=== PATIENT | female | born 1940 | race Caucasian/White ===

== ENCOUNTER 2016-11-08 22:31 | Inpatient (IN) ==
[2016-11-08] MEDS ORDERED: SODIUM CHLORIDE 0.9% 1,000 ML IV STA (22:51)
[2016-11-08 23:03] LABS: Basophils # 0.1 10*3/uL (0.0-0.2); Basophils % 1.1 % (0.0-0.8); Eosinophils # 0.4 10*3/uL (0.0-0.87); Eosinophils % 3.3 % (0.00-10.9); Hematocrit 34.6 VOL% (35.7-47.0); Hemoglobin 11.5 GM/DL (12.0-16.0); Immature Granulocytes % 0.3 %; Immature Granulocytes Absolute 0.03 #; Lymphocytes # 3.3 10*3/uL (1.4-4.0); Lymphocytes % 29.7 % (21.3-54.2); Mean Corpuscular HGB Conc 33.2 GM/DL (32-36); Mean Corpuscular Hemoglobin 30 PG (27-34); Mean Corpuscular Volume 89.9 FL (87-102); Monocytes # 0.8 10*3/uL (0.11-0.8); Monocytes % 6.7 % (1.7-12.7); Neutrophils # 6.6 10*3/uL (1.4-7.4); Neutrophils % 58.9 % (38.7-73.9); Platelet Count 331 T/CUMM (130-400); Red Blood Count 3.85 MC/CUMM (3.8-5.5); Red Cell Distribution Width 13.4 % (9.3-17.3); White Blood Count 11.1 T/CUMM (4-12)
[2016-11-08] MEDS ORDERED: ONDANSETRON 4 MG/2 ML VIAL IV STA (23:07)
[2016-11-08] MEDS ORDERED: ONDANSETRON 4 MG/2 ML VIAL ONE (23:07)
[2016-11-08 23:17] LABS: Alanine Aminotransferase 15 U/L (13-56); Albumin 3.8 G/DL (3.4-5.0); Alkaline Phosphatase 90 U/L (45-117); Aspartate Amino Transferase 16 U/L (0-37); Bilirubin,Total < 0.39 MG/DL (0.2-1.0); Blood Urea Nitrogen 24 MG/DL (7-18); Calcium 8.8 MG/DL (8.5-10.1); Glucose 131 MG/DL (74-106); Potassium 3.1 MMOL/L (3.5-5.1); Sodium 143 MMOL/L (136-145); Total Protein 6.4 G/DL (6.4-8.3); Troponin I Only < 0.015 NG/ML (0.00-0.045)
[2016-11-08] MEDS ORDERED: METOCLOPRAMIDE 10 MG/2 ML VIAL IV STA (23:27)
[2016-11-08] MEDS ORDERED: METOCLOPRAMIDE 10 MG/2 ML VIAL ONE (23:28)
[2016-11-08 23:37] LABS: Apearance,Urine CLEAR (Clear); Bacteria,Urine Occasional /HPF (Few); Barbiturates Screen,Urine Negative (Negative); Benzodiazepines Screen,Urine Negative (Negative); Bilirubin,Urine Negative (Negative); Blood, Urine Small mg/dL (Negative); Cannabinoid Screen,Urine Negative (Negative); Glucose,Urine (UA) Negative (Negative); Hyaline Casts,Urine 1 /LPF (0-3); Ketones,Urine 5 mg/dL (Negative); Mucus,Urine Occasional /LPF (Occasional); Nitrite,Urine Negative (Negative); Opiate Screen,Urine Negative (Negative); Phencyclidine Screen,Urine Negative (Negative); Protein,Urine Negative; RBC,Urine <1 /HPF (0-4); Squamous Epithelial Cell,Urine Occasional /HPF (0-10); Urine Color Straw (Yellow); Urine Specific Gravity 1.008 (1.001-1.035); Urine Urobilinogen < 2.0 EU/DL (0.2-1.0)
[2016-11-08] MEDS ORDERED: POTASSIUM CHLORIDE INJ 40 MEQ in SODIUM CHLORIDE 0.45% 1,000 ML IV SCH (23:45)
--- NOTE | 2016-11-08 23:59 | Emergency Department Note ---
IFaiza Brittany, am scribing for, and in the presence of, Amarilis Paz DO 23: 16. IJackson Debra, DO, personally performed the services described in this documentation, ascribed by Lisset Kendall in my presence, and it is both accurate and complete 359 . Arrival - Arrival Chief Complaint: Nausea/Vomiting/Diarrhea Stated Complaint: N/V ED Nursing Triage Note: Patient to room via ems with c/o n/v/d unable to determined how long patient has been sick. Patient was seen by and for the same issues this week. Family members are poor historians and patient is unable to provide history at this time. Mode of Arrival: Stretcher Limitations: No Limitations Source: Patient, Family Time Seen by Provider: 11/08/16 22:38 - History of Present Illness HPI Narrative: This is a 75 y/o white female,who presents to the ED with c/o nausea and vomiting since 0800 this morning. Her daughter states pt was on the way out of town with family before the nausea and vomiting started. Per pt, " I think the riding in the car rather than sitting still worsened the Sx". She reports she had a colonoscopy which showed a polyp. Pt reports her GI Doctor is Dr. Dominguez. Pt has no other complaints/pain in the ED at this time. Pt has a PMHx of HTN, asthma, anemia, GERD, and diverticulosis. Pt has had a , colonoscopy, EGD, and hysterectomy. Pt has a family medical Hx of diabetes, HTN, and stroke. Pt denies a social Hx. Onset (ago): hour(s) (Started at 0800 this morning) Consistency: constant Severity: moderate Allergies/Adverse Reactions: Allergies Allergy/AdvReac Type Severity Reaction Status Date / Time diphenhydramine Allergy RASH Verified 11/08/16 22:45 [From Benadryl] prochlorperazine Allergy RASH Verified 11/08/16 22:45 [From Compazine] promethazine [From Phenergan] Allergy RASH Verified 11/08/16 22:45 Home Medications: Home Medications Medication Instructions Recorded Confirmed Type Estradiol [Vivelle-Dot 0.05 mg/24 1 each TRANSDERM SUWE 12/12/15 02/04/16 History hr Patch] Ergocalciferol [Drisdol] 50,000 unit PO Q7D #7 capsule 12/14/15 02/04/16 Rx Lansoprazole [Prevacid] 30 mg PO BID #60 capsule 12/14/15 02/04/16 Rx NIFEdipine XL TAB [Procardia Xl] 30 mg PO DAILY #30 tablet 12/14/15 02/04/16 Rx Sucralfate Tab [Carafate Tab] 1 gm PO ACHS #120 tablet 12/14/15 02/04/16 Rx guaiFENesin/DM ER 600-30 [Mucinex 1 tablet PO BID PRN #14 tablet 12/14/15 Rx Dm 600-30 MG] Review of System - Review of System 12 point system: reviewed and no additional remarkable complaints except as stated - Review of System Gastrointestinal: Present: nausea, vomiting Medical,Surgical,& Family Hx - Medical History Cardio: History of: Hypertension Psychological: No history of: Anxiety Disorders Neurology: No history of: Seizures HEENT: History of: Eye Problem (wears contacts) Endocrine: No history of: Diabetes Mellitus (IDDM), Diabetes Mellitus (NIDDM) Respiratory: History of: Asthma, Pneumonia, Respiratory Problems (continuous sinus infections) No history of: COPD Gastrointestinal: History of: Diverticulitis/ Diverticulosis, GERD, Hemorrhoids Musculoskeletal: History of: Musculoskeletal Problems (left leg..athritis-gets steroid injections) Hematology: History of: Anemia - Surgical History Abdominal Surgeries: Surgical HX of: Colonoscopy, EGD Reproductive Surgeries: Surgical HX of;: Section, Hysterectomy - Family History Family History: Reports;: Family Diabetes, Family Hypertension, Family Stroke - Social History Smoking Status: Never smoker Frequency of Alcohol Use: None Type of Drug Use: None Exam Vital Signs: Vital Signs Temperature 96.5 F L 11/08/16 22:40 Pulse Rate 81 11/08/16 23:32 Respiratory Rate 16 11/08/16 23:32 Blood Pressure 150/80 11/08/16 23:32 O2 Sat by Pulse Oximetry 100 11/08/16 23:32 - General General appearance: alert, in no apparent distress - Head Head exam: Present: atraumatic, normocephalic, normal inspection - Eye Eye exam: Present: normal appearance, PERRL, EOMI. Absent: conjunctival injection, nystagmus, miosis, mydriasis, periorbital swelling, periorbital tenderness - ENT ENT exam: Present: normal exam, mucous membranes dry, TM's normal bilaterally, normal external ear exam - Neck Neck exam: Present: normal inspection, full ROM, trachea midline. Absent: tenderness, meningismus, lymphadenopathy, thyromegaly - Chest Chest inspection: Present: normal inspection, symmetric chest wall rise. Absent : tenderness, rash, abscess - Respiratory Respiratory exam: Present: normal lung sounds bilaterally. Absent: prolonged expiratory phase, rales, respiratory distress, rhonchi, stridor, wheezes - Cardiovascular Cardiovascular exam: Present: regular rate, normal rhythm, murmur (Systolic murmur noted which sounds like a click) - Abdominal Exam Abdominal exam: Present: soft, normal bowel sounds. Absent: distention, tenderness, guarding, rebound, rigidity - Rectal Exam Rectal exam: Present: deferred - Extremities Exam Extremities exam: Present: normal inspection, full ROM, normal capillary refill. Absent: tenderness, pedal edema, joint swelling, calf tenderness - Back Exam Back exam: Present: normal inspection, full ROM. Absent: tenderness, muscle spasm, rashes - Neurological Exam Neurological exam: Present: alert, oriented X3, CN II-XII intact. Absent: motor sensory deficit - Psychiatric Psychiatric exam: Present: normal affect, normal mood. Absent: depressed, agitated, anxious, flat affect, manic - Skin Skin exam: Present: warm, dry, intact, normal color. Absent: rash, cyanosis, diaphoresis, erythema, pallor, mottled Course Course Narrative: spoke with Dr Michael who will admit pt. for intractable n and v and hypokalemia Results - Labs CBC & BMP: 11/08/16 22:30 11/08/16 22:46 Disposition Clinical Impression: Hypokalemia, Nausea and vomiting Case discussed with: patient, patient's family Disposition: Still a Patient Condition: Stable Time of Disposition: 00:34
[2016-11-09] MEDS ORDERED: METOCLOPRAMIDE 10 MG/2 ML VIAL IV PRN (01:12)
[2016-11-09] MEDS ORDERED: ESTRADIOL TRANSDERM SCH (01:15)
--- NOTE | 2016-11-09 01:43 | Hospitalist History & Physical ---
Assessment and Plan (1) Intractable nausea and vomiting Status: Acute Assessment and plan: Admitted the patient to [facility]. Patient is allergic to Phenergan and she has done well with Reglan IV in the emergency room. We will continue with that for now. She will be consulted to Dr. Dominguez for GI evaluation. Reportedly she is supposed to be seen in the coming few days because of "" black stools. There is possibility she is bleeding because she had a biopsy of a polyp in the stomach not long time ago, at least that is what to the patient believes from the discussion she has had with Dr. Dominguez. She however has been taking a lot of Pepto-Bismol which conduct in the stools too. Current Visit: Yes (2) Memory loss Status: Acute Assessment and plan: Is not clear as to what the cause is. If she has been taking a lot of remaining on containing antacids that we do not know on medication panel from home and we should worry about chronic at a medium toxicity. She had an MRI done just about a year ago which showed no space-occupying pathology in the brain. Concerned that she also has a toxin generalized musculoskeletal weakness. A 12 deficiency or folate deficiency to be ruled out. Current Visit: Yes (3) Chronic fatigue Status: Acute Assessment and plan: As above Current Visit: Yes (4) Ataxia Status: Acute Assessment and plan: This goes along with the chronic fatigue will check for B12 and folate deficiency. I wish I could have ability to check for alumunium levels. I cannot find that prompt on the computer. Current Visit: Yes (5) Hypokalemia Status: Acute Assessment and plan: Supplement per protocol Current Visit: Yes (6) Anemia Status: Acute Assessment and plan: We will check iron indices check B12 and folate. Hematocrit is above 22. Current Visit: No Qualifiers: Anemia type: unspecified type Qualified Code(s): D64.9 - Anemia, unspecified History of Present Illness Chief complaint: Intractable vomiting History of present illness: Ms. Schwarz is a 75 year old female who presents to the ED with c/o nausea and vomiting since 0800 this morning. Her daughter states pt was on the way out of town with family before the nausea and vomiting started. Per pt, " I think the riding in the car rather than sitting still worsened the Sx". Denies ringing in the ear. She reports she had an EGD which showed a stoma polyp. Definitely says she did not have colonoscopy. Pt reports her GI Doctor is Dr. Dominguez. She does report early satiety and loss of appetite she does report weight loss. She does report dark stools of late but she has been taking a lot of Pepto- Bismol and takes Carafate chronically. I am not certain if he does not take aluminum them containing antacid; patient's memory is no serving herself well and has been progressively so I am concerned about possibility of chronic medium toxicity. She had an MRI of the brain in 2016 that revealed no space- occupying intracranial pathology. She has generalized weakness reports ataxia that has preceded these intractable nausea and vomiting. She had mild elevation of an anion gap today the serum bicarbonate is normal. She is mildly hypokalemic. She was coming back from [place] with a friend riding in a car when symptoms exacerbated. The chronicity of these syndrome is concerning that I believe this intractable nausea and vomiting may be just a tip of the ice zamora. While she does have a family history of diabetes he denies her personal history of diabetes. It is had with nausea vomiting that has been going on the day her blood sugar however is above normal. Home Medications Medication Instructions Recorded Confirmed Type Estradiol [Vivelle-Dot 0.05 mg/24 1 each TRANSDERM SUWE 12/12/15 11/09/16 History hr Patch] Lansoprazole [Prevacid] 30 mg PO BID #60 capsule 12/14/15 11/09/16 Rx NIFEdipine XL TAB [Procardia Xl] 30 mg PO DAILY #30 tablet 12/14/15 11/09/16 Rx Sucralfate Tab [Carafate Tab] 1 gm PO ACHS #120 tablet 12/14/15 11/09/16 Rx Allergies Allergy/AdvReac Type Severity Reaction Status Date / Time diphenhydramine Allergy RASH Verified 11/08/16 22:45 [From Benadryl] prochlorperazine Allergy RASH Verified 11/08/16 22:45 [From Compazine] promethazine [From Phenergan] Allergy RASH Verified 11/08/16 22:45 Medical,Surgical,& Family Hx - Medical History Cardio: History of: Hypertension Psychological: No history of: Anxiety Disorders Neurology: No history of: Seizures HEENT: History of: Eye Problem (wears contacts) Endocrine: No history of: Diabetes Mellitus (IDDM), Diabetes Mellitus (NIDDM) Respiratory: History of: Asthma, Pneumonia, Respiratory Problems (continuous sinus infections) No history of: COPD Gastrointestinal: History of: Diverticulitis/ Diverticulosis, GERD, Hemorrhoids Musculoskeletal: History of: Musculoskeletal Problems (left leg..athritis-gets steroid injections) Hematology: History of: Anemia - Surgical History Abdominal Surgeries: Surgical HX of: Colonoscopy, EGD Reproductive Surgeries: Surgical HX of;: Section, Hysterectomy - Family History Family History: Reports;: Family Diabetes, Family Hypertension, Family Stroke - Social History Smoking Status: Never smoker Frequency of Alcohol Use: None Type of Drug Use: None Review of systems: Oh point system assessment was done and significant with chief complaint is her presenting illness and past medical history or systems are negative Exam - Constitutional Vitals: Period Temp Pulse Resp BP Sys/[place] Pulse Ox Last 24 Hr 96.5 F-96.5 F 64-81 16-22 150-165/57-80 100-100 General appearance: over weight, other (But has lost weight) - Head Head exam: Present: normocephalic, atraumatic - Eye Eye exam: Present: EOMI, other (Anicteric sclera no conjunctival petechia) Pupils: Present: JOHN - ENT ENT exam: Present: normal oropharynx - Neck Neck exam: Present: other (Supple neck no adenopathy no thyromegaly midline trachea) - Respiratory Respiratory exam: Present: clear to auscultation bilaterally - Cardiovascular Cardiovascular exam: Present: regular rate and rhythm - GI/Abdominal GI/Abdominal exam: Present: normal bowel sounds, soft, other (No organomegaly) - Extremities Exam Extremities exam: Present: full ROM - Back Exam Back exam: Present: normal inspection - Neurological Exam Neurological exam: Present: oriented X3, CN II-XII intact, other (She answers questions appropriately but she is slightly hard of hearing and responses are really delayed. She acknowledges that her memory is not very good.) - Psychiatric Psychiatric exam: Present: normal mood, other (Subdued affect) - Skin Skin exam: Present: normal color, warm, dry Results - Labs CBC & BMP: 11/08/16 22:30 11/08/16 22:46 Lab Results: I have reviewed the past 24 hour labs (Noted chronic anemia Normal MCV normal RDW. Hypokalemia 3.1 sodium of 143 she has an anion gap of 15.1 bicarbonate of 24 chloride 107 calculated osmolality is normal liver function panel is unremarkable cardiac markers unremarkable urinalysis did have moderate leukocyte esterase with some bacteriuria cultures to follow patient is afebrile. With elevated sugars I suspect diabetes in which case you do not treat asymptomatic bacteriuria.)
[2016-11-09 02:02] LABS: % Iron Saturation 11.1 % (18-50)
[2016-11-09 02:14] LABS: Risk Ratio 3.41; VLDL CHOLESTEROL 31.6 MG/DL
[2016-11-09 02:30] LABS: Folate 18.8 NG/ML (5.4-24.0)
[2016-11-09] MEDS: DEXT 5% NACL 0.45% KCL 40 MEQ 40 MEQ/1,000 ML BAG IV SCH ×2 (03:15→15:11)
--- NOTE | 2016-11-09 07:12 | XRay Report ---
XR chest 1V portable Indication: "Abnormal prior chest x-ray needing repeat". Chest one view: Comparison 12/12/2015. Heart size and mediastinal contour are normal. No discrete infiltrates are shown. Mild interstitial prominence of the lungs noted with peribronchial thickening centrally. Pleural spaces are clear. Impression: Mild airways disease such as bronchitis or viral syndrome. PROCEDURE INTERPRETED AT [facility] [place] DEPARTMENT OF RADIOLOGY Final Report Signed by: Felix Villa M.D.
--- NOTE | 2016-11-09 08:16 | EKG Report ---
Stationary ECG Study [facility] ER Test Date: 11/09/2016 12:50:10 AM Pat Name: CARLYN BOOGIE Department: Room: Gender: F Felt Puller: : 1940 Requested by: Amarilis Paz Order Number: [id number] Reading MD: JAKOB REYNOSO Intervals [place] Rate: 80 P: 61 [place]: 172 QRS: 27 QRSD: 90 T: 49 QT: 343 QTc: 379 Interpretive Statements SINUS RHYTHM NONSPECIFIC T-WAVE ABNORMALITY Electronically Signed On 11-09-16 08:17:10 CDT by JAKOB REYNOSO [email or web address]
[2016-11-09] MEDS ORDERED: PANTOPRAZOLE 40 MG TABLET PO SCH (09:00)
[2016-11-09] MEDS: ONDANSETRON 4 MG/2 ML VIAL IV PRN (11:10)
--- NOTE | 2016-11-09 11:14 | Gastrointestinal Consult Note ---
Assessment and Plan (1) Partial gastric outlet obstruction Status: Acute Assessment and plan: Previous large gastric polyp noted that appears to be arising from the pyloric channel or perhaps proximal duodenum that on endoscopic photos appears to be intermittently refluxing back up in and out of the pyloric channel. I suspect that with the mobility of this fairly sizable polyp that may have produced some partial outlet obstruction by ball-valving in and out of the duodenum--this may not be obstructing at all, hopefully a upper GI series will demonstrate what proportion of the caliber of the duodenum is occupied by this polyp and whether there is actually obstruction above it. He may need to be removed surgically or endoscopically at this point. It is unclear whether this is feeding into the patient's anemia or whether there may be a lower GI tract lesion that has not yet been discovered as the patient is not return for colonoscopy. Previous colonoscopy in 2011 showed polyps 5 years ago and it would be unlikely for colon cancer to have developed and shows short period of time. I discussed the case with Dr. Villa who will be taking the patient to barium study today, if positive for obstruction Dr. Dominguez may want to reexamine the patient with endoscopic removal versus surgical resection of this region. Current Visit: Yes (2) Gastric AVM Status: Acute Assessment and plan: This was previously evaluated during the patient's last upper endoscopy in mid January 2016, possible treatment with upper endoscopy to follow potentially this visit. Current Visit: Yes (3) Nausea and vomiting Status: Acute Assessment and plan: The patient is having nausea and vomiting which may or may not be related to the above polyp producing intermittent obstruction of the GI tract proximally or may be related to underlying other issues but the patient is certainly on twice daily proton pump inhibitors and is getting Carafate twice daily and therefore is likely on near maximal symptomatic therapy. Upper GI series is pending at this time. Current Visit: Yes (4) GERD (gastroesophageal reflux disease) Status: Acute Current Visit: No (5) Personal history of colonic polyps Status: Acute Assessment and plan: Repeat colonoscopy is needed depending on previous polyps removed. If hyperplastic, colonoscopy could probably wait until 2021, if the polyps were adenomatous in 2011 and repeat colonoscopy at this time would be appropriate. Will have Dr. Dominguez research this further tomorrow. Current Visit: Yes History of Present Illness Chief complaint: Nausea/vomiting ?Obstructing large gastric polyp in the pyloric channel? History of present illness: Ms. Schwarz is a 75 year old female who was last seen in consultation in the hospital on 12/12/15 by VALENTINA Gregorio and Dr. Geradro Dominguez for anemia, and occult blood in her stools. Patient does take occasional Advil and had previously been scoped by Dr. Olmstead in the past with a C scope and previous EGD done 4 years prior to that time back in 2011 with the discovery of polyps ( by report no path in the [facility] system) and an EGD that was normal. The patient underwent more recent upper endoscopy by Dr. Dominguez during that last hospitalization and was discovered to have a pyloric channel large polyp that was biopsied and found to be hyperplastic, repeat biopsy was taken on 02/06/16-- - this large pyloric channel polyp was visualized once again and biopsied but I do not see that was removed. 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 At this point the patient has been having some increasing nausea and vomiting over the last 6 weeks and she has been compensating to cut down the amount of p.o. intake that she is having and has discovered that she can take in bread products with relative ease but other foods seem to get stuck and produce nausea and vomiting. She had been visiting [place] and had a sudden episode of drenching sweat nausea and vomiting and her friend drove her back to her home where she was able to contact Aren for an admission/evaluation here at [facility]. She has been trying to use Pepto-Bismol which has been making her stools somewhat dark. The patient also has been on Prevacid twice daily along with Carafate twice daily to suppress the acidity in her stomach. Her hematocrit is 34.6 with hemoglobin of 11.5 at this time and this is similar to when she was seen back in January (38% at that time). The patient has a potassium indicative of loss possibly secondary to nausea and vomiting. Iron saturation is 11% at this time, with an iron of 36 and a TIBC of 323. Her urine toxicology screen is showing positive for amphetamines versus methamphetamine. Home Medications Medication Instructions Recorded Confirmed Type Estradiol [Vivelle-Dot 0.05 mg/24 1 each TRANSDERM SUWE 12/12/15 11/09/16 History hr Patch] Lansoprazole [Prevacid] 30 mg PO BID #60 capsule 12/14/15 11/09/16 Rx NIFEdipine XL TAB [Procardia Xl] 30 mg PO DAILY #30 tablet 12/14/15 11/09/16 Rx Sucralfate Tab [Carafate Tab] 1 gm PO ACHS #120 tablet 12/14/15 11/09/16 Rx Allergies Allergy/AdvReac Type Severity Reaction Status Date / Time diphenhydramine Allergy RASH Verified 11/08/16 22:45 [From Benadryl] prochlorperazine Allergy RASH Verified 11/08/16 22:45 [From Compazine] promethazine [From Phenergan] Allergy RASH Verified 11/08/16 22:45 Medical,Surgical,& Family Hx - Medical History Cardio: History of: Hypertension Psychological: No history of: Anxiety Disorders Neurology: No history of: Seizures HEENT: History of: Eye Problem (wears contacts) Endocrine: No history of: Diabetes Mellitus (IDDM), Diabetes Mellitus (NIDDM) Respiratory: History of: Asthma, Pneumonia, Respiratory Problems (continuous sinus infections) No history of: COPD Gastrointestinal: History of: Diverticulitis/ Diverticulosis, GERD, Hemorrhoids Musculoskeletal: History of: Musculoskeletal Problems (left leg..athritis-gets steroid injections) Hematology: History of: Anemia - Surgical History Abdominal Surgeries: Surgical HX of: Colonoscopy, EGD Reproductive Surgeries: Surgical HX of;: Section, Hysterectomy - Family History Family History: Reports;: Family Diabetes, Family Hypertension, Family Stroke - Social History Smoking Status: Never smoker Frequency of Alcohol Use: None Type of Drug Use: None Review of systems: Constitutional: Denies fever, chills, but positive for recent nausea, and vomiting Eyes: Denies dry eyes, and scleral icterus HENT: Denies headaches Cardiovascular: Denies acute chest pain and claudication Respiratory: Denies shortness of breath, wheezing, and difficulty breathing, denies cough Gastrointestinal: As noted in the HPI Genitourinary: Denies dysuria and hematuria Neurologic: Denies vision loss, and loss of sensation Musculoskeletal: Patient does have some joint stiffness, and muscular weakness, but no swelling Psychiatric: Denies depression and susana symptoms Heme-Lymph: Denies easy bruising, lymph node enlargement or tenderness, night sweats, excessive bleeding Allergies-immunologic: Denies pruritus and rhinorrhea Exam - Constitutional Vitals: Period Temp Pulse Resp BP Sys/[place] Pulse Ox Last 24 Hr 96.5 F-98.2 F 61-84 14-22 128-165/57-84 97-100 Exam: Constitutional: Well-developed, well-nourished, alert, and in no acute distress--she appears younger than her stated age of 75 years. Head and face: Head: Normocephalic atraumatic Eyes: Conjunctiva without injection, no gross scleral icterus, pupils equal and round bilaterally, tinted contacts are noted as well as arcus senilis Ears: Intact to conversation in both ears Nose: External appearance is normal, nares patent Mouth: Oral mucous membranes moist without erythema dentition noted to be without erosion Neck: Normal appearance, no masses or tenderness, trachea midline Thyroid: Gland midline and appropriate size for age Respiratory: Normal respiratory effort, clear to auscultation without wheezes, rhonchi or rales Cardiovascular: Regular rate and rhythm, normal S1, S2, the exam is without rubs, murmurs or gallops. Gastrointestinal: Minimal epigastric tenderness to deep palpation, normal active bowel sounds, tone normal without rigidity or guarding, no masses present , no hepatomegaly, no spleen tip felt. Rectal exam showed good tone, small internal and external hemorrhoids stool is present brown and guaiac negative. Lymphatic: Neck without adenopathy, axilla without lymphadenopathy present Musculoskeletal: Right and left lower extremities without evidence of edema Skin and subcutaneous tissue: No rashes or ulcerations noted, normal skin turgor, digits and nails without clubbing/cyanosis/deformities. Neurologic: The patient is grossly oriented to person place and time, cranial nerves show tongue movements are normal with normal tongue extrusion midline, light touch sensation is intact. Psychiatric: No hallucinations or delusions are present, does not appear depressed Results - Labs CBC & BMP: 11/08/16 22:30 11/08/16 22:46
--- NOTE | 2016-11-09 12:45 | Fluoroscopy Report ---
[place] upper GI series Indication: Known polyp in the pyloric channel. Intractable nausea and vomiting. Suspect obstruction. Upper GI: Fluoroscopy time 2 minutes 26 seconds, 22 images captured. Breakup of primary peristalsis in the esophagus noted with tertiary waves. No hiatal hernia or reflux documented, although contrast administered was limited due to chronic vomiting. No gross gastric abnormality is shown. There is a filling defect at the pylorus measuring approximately 4 cm in diameter, presumably the known polyp. With the patient prone, MENESES, right lateral and RPO to the tabletop, no barium would pass the obstructing polyp. When placed supine and left posterior oblique to the tabletop, contrast would flow into the duodenum. Impression: Intermittent obstructing polyp at the gastric pylorus. Presbyesophagus. PROCEDURE INTERPRETED AT [facility] DEPARTMENT OF RADIOLOGY Final Report Signed by: Felix Villa M.D.
--- NOTE | 2016-11-09 12:49 | Ultrasound Report ---
US gallbladder Indication: Intractable nausea and vomiting. Abdominal pain. ULTRASOUND ABDOMEN, limited Comparison: None Findings: Liver: Unremarkable Gallbladder: Unremarkable Common bile duct: 3 mm Pancreas: Unremarkable Right kidney: 10.0 cm length. No solid mass or calcification shown. There is an 11 x 13 x 11 mm cyst at the upper pole. Mild right hydronephrosis is present. Cursory look the bladder shows bilateral ureter jets. Impression: 1. Right renal cyst. 2. Minimal right hydronephrosis without demonstrated obstruction based on patency of both ureters to the bladder. PROCEDURE INTERPRETED AT [facility] DEPARTMENT OF RADIOLOGY Final Report Signed by: Felix Villa M.D.
[2016-11-10] MEDS: DEXT 5% NACL 0.45% KCL 40 MEQ 40 MEQ/1,000 ML BAG IV SCH ×3 (04:00→21:03)
[2016-11-10 06:22] LABS: Calcium 8.6 MG/DL (8.5-10.1); Osmolality,Calculated 285.7 MOS/KG (273-304)
[2016-11-10] MEDS ORDERED: LIDOCAINE 2% 5 ML VIAL ONE (11:08)
[2016-11-10] MEDS ORDERED: PROPOFOL 200 MG/20 ML VIAL IV ONE (11:08)
--- NOTE | 2016-11-10 11:10 | History and Physical Update ---
History and Physical Update - Physical Exam Mental Status: alert and oriented Heart: regular rate and rhythm Lung: clear to auscultation Abdomen: within normal limits Vitals: within normal limits
--- NOTE | 2016-11-10 11:35 | Operative Note ---
Date of procedure: 11/10/16 Pre-op diagnosis: Gastric outlet obstruction from prolapsing polyp Procedure: EGD with snare polypectomy and epinephrine control of bleeding with clip closure 75-year-old female with recurrent gastric outlet obstruction due to large polyp. She is now for upper endoscopy to further evaluate. Informed symptoms obtained patient She was sedated with MAC anesthesia per anesthesia protocol. Patient placed in left lateral decubitus position the Olympus flexible video upper endoscope is her lower cavity direct vision the esophagus intubated. Findings: Esophagus-normal proximal mid esophageal mucosa distal esophagus with small hiatal hernia no significant esophagitis is seen. Stomach--normal insufflation. Body fundus and cardia stomach are normal. In the antrum the stomach there is again seen a large approximately 2-1/2 cm polyp in the prepyloric antrum. Pylorus is normal. Duodenum is normal bulb and duodenum to the third portion of duodenum. The scope withdrawn back to the region of the antrum of the stomach polyp was vascular appearing. It was elected to proceed with snare polypectomy and a large polypectomy snare was placed around the polyp tension was slowly applied as coagulation and cutting current were utilized. Approximately 80% of the polyp was removed. There appeared to be arterial bleeding associated will be remove this polyp. Epinephrine was radially injected approximately 10 cc total with good hemostasis. Subsequently a Endo Clip was positioned across the defect with good hemostasis. The area was observed for several minutes when no additional bleeding noted. Subsequently the polyp was removed with a basket snare in toto. The procedure terminated placed our procedure well she is discharged recovery in good condition. Postop diagnosis 1. Large gastric polyp with intermittent outlet obstruction follow-up polyp path and observe for signs symptoms of further bleeding. We will plan repeat EGD in 6 weeks to ensure complete polyp removal unless evidence of more serious nature require surgical resection. 2. Hiatal hernia continue PPI treatment. Anesthesia: MAC Surgeon / Physician: Gerardo Dominguez Estimated blood loss: minimal Specimens: other (Large antral gastric polyp) Condition: stable Disposition: post procedure unit Results - Labs CBC & BMP: 11/08/16 22:30 11/10/16 04:28 Discharge Plan - Discharge Medications No Action Estradiol [Vivelle-Dot 0.05 mg/24 hr Patch] 1 each TRANSDERM SUWE Lansoprazole [Prevacid] 30 mg PO BID #60 capsule NIFEdipine XL TAB [Procardia Xl] 30 mg PO DAILY #30 tablet Sucralfate Tab [Carafate Tab] 1 gm PO ACHS #120 tablet - Follow Up or Referral - Forms/Instructions
--- NOTE | 2016-11-10 11:37 | Anesthesia Post-Op ---
Anesthesia Post OP - Post Ansesthetic Evaluation Patient seen in post op: Yes Resp: within normal limits CV: within normal limits Mental: within normal limits Temp: within normal limits [id number]: within normal limits Nausea and Vomiting: within normal limits Pain: within normal limits
[2016-11-10] MEDS ORDERED: ONDANSETRON 4 MG/2 ML VIAL ONE (12:03)
[2016-11-10] MEDS ORDERED: EPINEPHrine 1 MG/ML VIAL ONE (12:04)
[2016-11-10] MEDS: ONDANSETRON 4 MG/2 ML VIAL IV PRN (12:07)
--- NOTE | 2016-11-10 12:35 | Hospitalist Progress Note ---
Assessment and Plan (1) Intractable nausea and vomiting Status: Acute Assessment and plan: This has improved. EGD showed a large gastric polyp with intermittent outlet obstruction. Plan Continue GI's recommendations Current Visit: Yes (2) Partial gastric outlet obstruction Status: Acute Assessment and plan: s/p EGD Plan Follow-up polyp path and observe for signs symptoms of further bleeding. GI wants to repeat EGD in 6 weeks to ensure complete polyp removal unless evidence of more serious nature require surgical resection. Hiatal hernia treatment with PPI. Current Visit: Yes (3) Memory loss Status: Acute Assessment and plan: She had an MRI done just about a year ago which showed no space-occupying pathology in the brain. Plan Neuro consult MRI/folate/Vit B12/RPR/TSH levels. Current Visit: Yes (4) Chronic fatigue Status: Acute Assessment and plan: PT consult. Current Visit: Yes (5) Ataxia Status: Acute Assessment and plan: Neuro to evaluate, follow MRI Current Visit: Yes (6) Anemia Status: Acute Assessment and plan: will get Iron studies Current Visit: No Qualifiers: Anemia type: unspecified type Qualified Code(s): D64.9 - Anemia, unspecified (7) UTI (urinary tract infection) Status: Acute Assessment and plan: UC grew gram negative rods Plan IV Rocephin, will get BC Current Visit: Yes (8) HTN (hypertension) Status: Acute Assessment and plan: stable Current Visit: Yes Hospitalist: Subjective Interval history: patient had an EGD which showed a large gastric polyp with intermittent outlet obstruction.UC grew gram negative rods. Exam - Constitutional Vitals: Period Temp Pulse Resp BP Sys/[place] Pulse Ox Last 24 Hr 97.1 F-98.3 F 57-70 14-62 108-160/45-70 95-100 General appearance: no acute distress - Head Head exam: Present: normal inspection - Respiratory Respiratory exam: Present: clear to auscultation bilaterally - Cardiovascular Cardiovascular exam: Present: regular rate and rhythm - GI/Abdominal GI/Abdominal exam: Present: normal bowel sounds - Extremities Exam Extremities exam: Present: normal inspection - Neurological Exam Neurological exam: Present: alert, oriented X3 Results - Labs CBC & BMP: 11/08/16 22:30 11/10/16 04:28 Lab Results: I have reviewed the past 24 hour labs
[2016-11-10 13:07] LABS: % Iron Saturation 26.4 % (18-50); Ferritin 16.8 ng/ml (8-252)
[2016-11-10 13:25] LABS: Free T4 (Free Thyroxine) 1.21 NG/DL (0.76-1.46); Thyroid Stimulating Hormone 1.16 uIU/ml (0.358-3.74)
[2016-11-10] MEDS: cefTRIAXone 1,000 MG in SODIUM CHLORIDE 0.9% 100 ML IV SCH (13:30)
--- NOTE | 2016-11-10 14:29 | Neurology Consult Note ---
History of Present Illness History of present illness: 75 years old right-handed white lady who was admitted to the hospital for nausea vomiting and gastric polyps. Neurology is consulted to evaluate her for the memory. Family reported that she has been having short-term memory difficulties. She often repeats herself and get confused from time to time. She does have difficulty remembering people names, things and telephone numbers. Occasionally she has difficulty in managing finances. She was tried to get an MRI of the brain done with she could not do it. No headaches reported. No nausea or vomiting anymore reported. No dizziness reported. No weakness tingling or numbness reported Home Medications Medication Instructions Recorded Confirmed Type Estradiol [Vivelle-Dot 0.05 mg/24 1 each TRANSDERM SUWE 12/12/15 11/09/16 History hr Patch] Lansoprazole [Prevacid] 30 mg PO BID #60 capsule 12/14/15 11/09/16 Rx NIFEdipine XL TAB [Procardia Xl] 30 mg PO DAILY #30 tablet 12/14/15 11/09/16 Rx Sucralfate Tab [Carafate Tab] 1 gm PO ACHS #120 tablet 12/14/15 11/09/16 Rx Allergies Allergy/AdvReac Type Severity Reaction Status Date / Time diphenhydramine Allergy RASH Verified 11/08/16 22:45 [From Benadryl] prochlorperazine Allergy RASH Verified 11/08/16 22:45 [From Compazine] promethazine [From Phenergan] Allergy RASH Verified 11/08/16 22:45 12 point system: reviewed and no additional remarkable complaints except as stated Medical,Surgical,& Family Hx - Medical History Cardio: History of: Hypertension Psychological: No history of: Anxiety Disorders Neurology: No history of: Seizures HEENT: History of: Eye Problem (wears contacts) Endocrine: No history of: Diabetes Mellitus (IDDM), Diabetes Mellitus (NIDDM) Respiratory: History of: Asthma, Pneumonia, Respiratory Problems (continuous sinus infections) No history of: COPD Gastrointestinal: History of: Diverticulitis/ Diverticulosis, GERD, Hemorrhoids Musculoskeletal: History of: Musculoskeletal Problems (left leg..athritis-gets steroid injections) Hematology: History of: Anemia - Surgical History Abdominal Surgeries: Surgical HX of: Colonoscopy, EGD Reproductive Surgeries: Surgical HX of;: Section, Hysterectomy - Family History Family History: Reports;: Family Diabetes, Family Hypertension, Family Stroke - Social History Smoking Status: Never smoker Frequency of Alcohol Use: None Type of Drug Use: None Exam - Constitutional Vitals: Period Temp Pulse Resp BP Sys/[place] Pulse Ox Last 24 Hr 97.1 F-98.3 F 57-70 14-189 108-160/45-80 95-100 Exam: GENERAL: Patient is in no acute distress. NECK: Neck is supple. There is no JVD. No carotid bruits present. No thyroid masses. CVS: First and second heart sounds are normal. There is no S3 present. Regular rate and rhythm. RESPIRATORY: Lungs are clear to auscultation without any rales or rhonchi. ABDOMEN: Soft and non-tender. Bowel sounds are present. There is no hepatosplenomegaly. EXT: There is no palpable edema. Peripheral pulses are present. Skin: No rashes Central Nervous system: General: Alert, awake and Oriented x 3 Speech: Fluent Comprehension: Intact and normal Facial expressions: Normal Cranial Nerves: CN1/Olfactory: Normal CN II/ Optic: Normal, Visual Singh unreliable CN III, and : JOHN & EOMI CN V: Normal & intact CN VII: face is symmetric CNVIII: Normal CN XI/X/XI/XII: Intact and Normal Motor: Bulk and Tone is normal. Strength in the right 5/5 Strength in the left 5/5 Sensory: Grossly intact for all the modalities of PP, LT and temp sense Reflexes: 1+ and symmetrical Cerebellar function: Normal finger to nose and heel to caldwell testing. Toes: Equivocal Gait: Not tested at this time Results - Labs CBC & BMP: 11/08/16 22:30 11/10/16 04:28 Assessment and Plan (1) Memory loss Status: Acute Assessment and plan: This could be related to underlying early dementia. Patient will need thorough workup as an outpatient. I would not initiate any investigations until current illness settles down. I be more than happy to see her in my office in 2-3 weeks and work her up for dementia. Thank you for the consultation Sign off please call as needed Current Visit: Yes Specialty Discharge - Follow Up or Referrals Follow up with: Tru Acevedo MD [Physician] - 2 Weeks
[2016-11-10 14:54] LABS: Vitamin B12 787 PG/ML (211-911)
[2016-11-10] MEDS ORDERED: LANSOPRAZOLE ODT 30 MG TABLET PO SCH (21:00)
[2016-11-11] MEDS: DEXT 5% NACL 0.45% KCL 40 MEQ 40 MEQ/1,000 ML BAG IV SCH (08:26)
--- NOTE | 2016-11-11 08:44 | Gastrointestinal Progress Note ---
<Christy Mishra - Last Filed: 11/11/16 08:42> Assessment and Plan (1) Partial gastric outlet obstruction Status: Acute Assessment and plan: 11/11-Post EGD with findings noted as below. Path report pending. No N/V today. Plan and addendum to follow by Dr Dominguez. Gastroenterology - PN: Subj Interval history: CC: Gastric outlet obstruction Pt is seen awake and alert sitting up in bed eating breakfast. She states her appetite is fair at this time but states she is swallowing fairly well. She denies any nausea or vomiting. She had EGD on yesterday with 80% of polyp removed with path report pending today. She is to have repeat EGD in 6 weeks to further evaluate. Abdomen is soft, nontender. ROS: Denies SOB or chest pain Exam (Progress Note) - Constitutional Vitals: Period Temp Pulse Resp BP Sys/[place] Pulse Ox Last 24 Hr 97.0 F-98.5 F 61-70 14-189 108-145/45-80 98-100 General appearance: normal weight, no acute distress - Head Head exam: Present: normal inspection, normocephalic - Eye Eye exam: Present: other (lids and conjunctiva unremarkable). Absent: scleral icterus - ENT ENT exam: Present: normal exam, normal oropharynx - Neck Neck exam: Present: normal inspection - Respiratory Respiratory exam: Present: clear to auscultation bilaterally. Absent: rales, rhonchi, wheezes - Cardiovascular Cardiovascular exam: Present: regular rate and rhythm. Absent: diastolic murmur , JVD, systolic murmur - GI/Abdominal GI/Abdominal exam: Present: normal bowel sounds, soft. Absent: ascites, distended, mass, organomegaly, tenderness - Extremities Exam Extremities exam: Present: normal inspection, full ROM - Back Exam Back exam: Present: normal inspection - Neurological Exam Neurological exam: Present: alert, oriented X3 - Psychiatric Psychiatric exam: Present: normal affect, normal mood - Skin Skin exam: Present: normal color, warm, dry Results - Labs CBC & BMP: 11/08/16 22:30 11/10/16 04:28 Lab Results: I have reviewed the past 24 hour labs Specialty Discharge - Follow Up or Referrals Follow up with: Tru Acevedo MD [Physician] - 12/08/16 10:30 am Gerardo Dominguez MD [Physician] - 12/03/16 2:45 pm <Gerardo Dominguez - Last Filed: 11/11/16 18:41> Exam (Progress Note) - Constitutional Vitals: Period Temp Pulse Resp BP Sys/[place] Pulse Ox Last 24 Hr 97.0 F-98.1 F 63-72 16-20 109-143/58-73 98-99 Results - Labs CBC & BMP: 11/08/16 22:30 11/10/16 04:28
[2016-11-11 09:24] LABS: Folate 17.2 NG/ML (5.4-24.0)
[2016-11-11 11:08] VITALS: BP 143/58
--- NOTE | 2016-11-11 11:28 | Pathology Report from [facility] ---
[facility] ACCESSION # : [id number] PATIENT NAME : Anastasiya Schwarz ORDERING DR : KAMLESH SUH MD CLINICAL HX: EGD with polypectomy POST-OP DX: Pyloric channel polypectomy SPECIMEN INFO: Pyloric channel polyp GROSS DESCRIPTION: Received in formalin labeled ANASTASIYA SCHWARZ is a red polypoid mass measuring 1.9 x 1.3 x 1.4 cm, sectioned and submitted in one cassette. DIAGNOSIS FOR ANASTASIYA SCHWARZ: PYLORIC CHANNEL POLYP: Ulcerated hyperplastic gastric polyp with inflammation. H. pylori not seen on special stain. COLLECTED DATE: 11/10/2016 [facility] REPORT DATE: 11/11/2016 ELECTRONICALLY SIGNED BY: Maryan Kurtz M.D. 11/11/2016 - 9:08:11 [facility]
[2016-11-11] MEDS: cefTRIAXone 1,000 MG in SODIUM CHLORIDE 0.9% 100 ML IV SCH (12:16)
--- NOTE | 2016-11-11 12:51 | Discharge Summary ---
Hospital Course - Hospital Course Hospital Course: Ms. Schwarz is a 75 year old female who has a history of HTN, pyloric large hyperplastic polyp,gastric arteriovenous malformations who presented with intractable nausea and vomiting.She was also worried about memory loss. She had an MRI of the brain in 2016 that revealed no space-occupying intracranial pathology. She was admitted, started on IVF, IV PPIs, GI was consulted.She had an EGD which showed a large gastric polyp with intermittent outlet obstruction and a polypectomy was done. Her pathology report is pending. GI wants to repeat EGD in 6 weeks to ensure complete polyp removal unless evidence of more serious nature require surgical resection.Hiatal hernia was also noted which is currently being treated with a PPI. Neurology saw in consultation.They felt her memory loss could be related to underlying early dementia. They said that Patient will need thorough workup as an outpatient.They want to see her in clinic once her current illness settles in about 2-3weeks.Her urine grew E. Coli sensitive to Levaquin and Ceftriaxone. Her Lipid profile showed a TG-158, CL-215. She has been started on Lipitor. Her vitals are stable. Her symptoms have subsided, she feels much better and she is ready to go home. She will follow with her PCP in 1week. - Time spent with patient Time with patient DS: Greater than 30 minutes (Time spent> 35mins) Diagnosis - Discharge Diagnosis (1) Intractable nausea and vomiting Status: Acute (2) Partial gastric outlet obstruction Status: Acute (3) Memory loss Status: Acute (4) Chronic fatigue Status: Acute (5) Ataxia Status: Acute (6) Anemia Status: Acute (7) UTI (urinary tract infection) Status: Acute (8) HTN (hypertension) Status: Acute (9) Dyslipidemia Status: Acute Specialty Discharge - Follow Up or Referrals Follow up with: Tru Acevedo MD [Physician] - 12/08/16 10:30 am Discharge Plan - Discharge Data Disposition: Home Health Service Condition at Discharge: Stable Discharge Diet: heart healthy Activity: resume usual activities as tolerated - Discharge Medications New Atorvastatin [Lipitor] 10 mg PO BEDTIME #30 tablet Levofloxacin Tab [Levaquin Tab] 500 mg PO DAILY #7 tablet Ondansetron Tab [Zofran Tab] 4 mg PO Q6HR PRN #20 tablet PRN Reason: Nausea Continue Estradiol [Vivelle-Dot 0.05 mg/24 hr Patch] 1 each TRANSDERM SUWE Lansoprazole [Prevacid] 30 mg PO BID #60 capsule NIFEdipine XL TAB [Procardia Xl] 30 mg PO DAILY #30 tablet Discontinued Sucralfate Tab [Carafate Tab] 1 gm PO ACHS #120 tablet - Follow Up or Referral Follow Up: Tru Acevedo MD [Physician] - 12/08/16 10:30 am - Forms/Instructions Instructions: Arteriovenous Malformation (DC), Colorectal Polyps (DC), Acute Nausea and Vomiting (DC) Exam - Constitutional Vitals: Period Temp Pulse Resp BP Sys/[place] Pulse Ox Last 24 Hr 97.0 F-98.5 F 63-72 16-20 109-143/58-73 98-99 General appearance: no acute distress - Head Head exam: Present: normal inspection - Respiratory Respiratory exam: Present: clear to auscultation bilaterally - Cardiovascular Cardiovascular exam: Present: regular rate and rhythm - GI/Abdominal GI/Abdominal exam: Present: normal bowel sounds - Extremities Exam Extremities exam: Present: normal inspection Discharge Results Procedures and tests throughout hospitalization: Pending Orders 11/09/16 01:06 Occult Blood, Stool Routine 11/10/16 04:35 Transferrin Routine 11/10/16 13:01 Blood Culture Routine Labs on day of discharge: Labs from last 24 hours 11/10/16 11/10/16 11/10/16 13:01 04:35 04:35 Iron 74 TIBC 280 % Saturation 26.4 Ferritin 16.8 Vitamin B12 787 Folate 17.2 Free T4 1.21 TSH 3rd Generation 1.160 Treponema pallidum IgG Nonreactive DS: Provider Date of admission: 11/09/16 01:31 Primary care physician: . No PCP Attending physician on admission: Rajeev Nesbitt MD Consults: 11/09/16 01:32 Consult to Physician [CONS] Routine Comment: dark stools, patient sees dr. dominguez Consulting Provider: Gerardo Dominguez Consult to Specialist Group: Gastroenterology When should Consulting Provider be notified: In am Person Notified: dr. jeannette pham Date Notified: 11/09/16 Time Notified: 09:14 11/09/16 09:09 Consult to Physician [CONS] Routine Comment: memory loss Consulting Provider: Hashmat,Tru Consult to Specialist Group: Neurology Person Notified: RAMSES Date Notified: 11/10/16 Time Notified: 09:11 11/09/16 12:23 Consult to Anesthesiology [CONS] Routine Consulting Provider: Reason for Anesthesiology: Pre-op Clearance 11/10/16 12:43 Consult to Physical Therapy [CONS] Routine Reason for Physical Therapy: Evaluate and Treat Discharging clinician: Lamar Mishra MD
== END 2016-11-11 14:20 | disposition home or self-care (01) | DRG 381 ==
LOC: EDUNIT# → EDBD → N.ED 22:31 → N.EDINP 11-09 01:49 → SUATTDRO 11-09 01:49 → N.5E 11-09 02:00
PROVIDERS: ADMIT Internal Medicine Infectious Disease; ATTEND Internal Medicine

== ENCOUNTER 2017-04-09 12:12 | Inpatient (IN) ==
[2017-04-09 13:18] LABS: Basophils % 0.6 % (0.0-0.8); Eosinophils # 0.1 10*3/uL (0.0-0.87); Eosinophils % 1.1 % (0.00-10.9); Hematocrit 36.7 VOL% (35.7-47.0); Hemoglobin 12.1 GM/DL (12.0-16.0); Immature Granulocytes % 0.3 %; Immature Granulocytes Absolute 0.02 #; Lymphocytes # 1.6 10*3/uL (1.4-4.0); Lymphocytes % 25.5 % (21.3-54.2); Mean Corpuscular Hemoglobin 29 PG (27-34); Mean Corpuscular Volume 87.6 FL (87-102); Mean Platelet Volume 9.6 FL (9.6-12.0); Monocytes # 0.4 10*3/uL (0.11-0.8); Monocytes % 6.1 % (1.7-12.7); Neutrophils # 4.3 10*3/uL (1.4-7.4); Neutrophils % 66.4 % (38.7-73.9); Platelet Count 346 T/CUMM (130-400); Red Blood Count 4.19 MC/CUMM (3.8-5.5); Red Cell Distribution Width 12.6 % (9.3-17.3); White Blood Count 6.4 T/CUMM (4-12)
[2017-04-09 13:30] LABS: Albumin 3.9 G/DL (3.4-5.0); Bilirubin,Total 0.7 MG/DL (0.2-1.0); Calcium 9.1 MG/DL (8.5-10.1); Osmolality,Calculated 277.7 MOS/KG (273-304); Potassium 3.3 MMOL/L (3.5-5.1); Total Protein 7.5 G/DL (6.4-8.3)
[2017-04-09] MEDS ORDERED: ONDANSETRON 4 MG/2 ML VIAL IV PRN (17:01)
[2017-04-09] MEDS ORDERED: LACTATED RINGERS 1,000 ML IV ONE (17:02)
[2017-04-09] MEDS ORDERED: LACTATED RINGERS 1,000 ML IV SCH (17:30)
[2017-04-09] MEDS ORDERED: POTASSIUM CHLORIDE RIDER 10 MEQ in PREMIX 1 EACH IV PRN (17:59)
[2017-04-09] MEDS: POTASSIUM CHLORIDE RIDER 10 MEQ in PREMIX 1 EACH IV SCH ×2 (18:38→20:05)
[2017-04-09] MEDS: ATORVASTATIN 10 MG TABLET PO SCH (20:05)
[2017-04-10 08:24] LABS: Basophils % 0.8 % (0.0-0.8); Eosinophils # 0.1 10*3/uL (0.0-0.87); Eosinophils % 2.2 % (0.00-10.9); Hemoglobin 10.2 GM/DL (12.0-16.0); Immature Granulocytes % 0.2 %; Immature Granulocytes Absolute 0.01 #; Lymphocytes # 1.6 10*3/uL (1.4-4.0); Lymphocytes % 32.1 % (21.3-54.2); Mean Corpuscular HGB Conc 32.9 GM/DL (32-36); Mean Corpuscular Hemoglobin 30 PG (27-34); Mean Corpuscular Volume 89.6 FL (87-102); Mean Platelet Volume 9.3 FL (9.6-12.0); Monocytes # 0.4 10*3/uL (0.11-0.8); Monocytes % 8.6 % (1.7-12.7); Neutrophils # 2.8 10*3/uL (1.4-7.4); Neutrophils % 56.1 % (38.7-73.9); Red Blood Count 3.46 MC/CUMM (3.8-5.5); Red Cell Distribution Width 12.7 % (9.3-17.3)
[2017-04-10 08:30] LABS: Platelet Count 273 T/CUMM (130-400)
[2017-04-10 08:55] LABS: Albumin 3.3 G/DL (3.4-5.0); Bilirubin,Total 0.6 MG/DL (0.2-1.0); Calcium 8.7 MG/DL (8.5-10.1); Osmolality,Calculated 280.3 MOS/KG (273-304); Potassium 3.7 MMOL/L (3.5-5.1); Total Protein 5.9 G/DL (6.4-8.3)
[2017-04-10] MEDS ORDERED: LIDOCAINE 2% 5 ML VIAL ONE (09:00)
[2017-04-10] MEDS ORDERED: PROPOFOL 200 MG/20 ML VIAL IV ONE (09:00)
[2017-04-10] MEDS: PANTOPRAZOLE 40 MG VIAL IV SCH (12:51)
[2017-04-10] MEDS: ATORVASTATIN 10 MG TABLET PO SCH (21:13)
[2017-04-11 03:31] LABS: Basophils # 0.1 10*3/uL (0.0-0.2); Basophils % 0.5 % (0.0-0.8); Eosinophils # 0.2 10*3/uL (0.0-0.87); Eosinophils % 1.6 % (0.00-10.9); Hematocrit 32.6 VOL% (35.7-47.0); Hemoglobin 10.9 GM/DL (12.0-16.0); Immature Granulocytes % 0.4 %; Immature Granulocytes Absolute 0.04 #; Lymphocytes # 2.7 10*3/uL (1.4-4.0); Lymphocytes % 25.3 % (21.3-54.2); Mean Corpuscular HGB Conc 33.4 GM/DL (32-36); Mean Corpuscular Hemoglobin 30 PG (27-34); Mean Corpuscular Volume 88.8 FL (87-102); Mean Platelet Volume 9.8 FL (9.6-12.0); Monocytes # 0.8 10*3/uL (0.11-0.8); Monocytes % 7.5 % (1.7-12.7); Neutrophils % 64.7 % (38.7-73.9); Platelet Count 321 T/CUMM (130-400); Red Blood Count 3.67 MC/CUMM (3.8-5.5); Red Cell Distribution Width 12.6 % (9.3-17.3); White Blood Count 10.8 T/CUMM (4-12)
[2017-04-11 04:08] LABS: Free T4 (Free Thyroxine) 1.36 NG/DL (0.76-1.46); Thyroid Stimulating Hormone 0.541 uIU/ml (0.358-3.74)
[2017-04-11 07:00] VITALS: BP 132/88
[2017-04-11] MEDS: PANTOPRAZOLE 40 MG VIAL IV SCH (10:33)
[2017-04-12] MEDS ORDERED: [UNRECOGNIZED DRUG - OTHER] TRANSDERM SCH (09:00)
[2017-04-12] MEDS ORDERED: ESTRADIOL TRANSDERM SCH (09:00)
== END 2017-04-11 12:29 | disposition home or self-care (01) | DRG 394 ==
LOC: N.ED 12:12 → N.EDINP 15:35 → N.5E 16:45
PROVIDERS: ADMIT Internal Medicine; ATTEND Internal Medicine

== ENCOUNTER 2021-01-20 21:56 | Observation (INO) ==
[2021-01-20] MEDS ORDERED: PANTOPRAZOLE 40 MG VIAL IV STA (22:27)
[2021-01-20] MEDS ORDERED: SODIUM CHLORIDE 0.9% 500 ML IV STA ×2 (22:27→22:30)
[2021-01-20] MEDS ORDERED: ONDANSETRON 4 MG/2 ML VIAL IV STA (22:27)
[2021-01-20 22:42] LABS: Basophils # 0.1 10*3/uL (0.0-0.2); Basophils % 0.7 % (0.0-0.8); Eosinophils # 0.2 10*3/uL (0.0-0.87); Eosinophils % 2.5 % (0.00-10.9); Hematocrit 37.6 VOL% (35.7-47.0); Hemoglobin 12.2 GM/DL (12.0-16.0); Immature Granulocytes % 0.3 %; Immature Granulocytes Absolute 0.03 #; Lymphocytes # 2.4 10*3/uL (1.4-4.0); Lymphocytes % 27.3 % (21.3-54.2); Mean Corpuscular HGB Conc 32.4 GM/DL (32-36); Mean Corpuscular Volume 98.9 FL (87-102); Mean Platelet Volume 9.1 FL (9.6-12.0); Monocytes % 7.2 % (1.7-12.7); Platelet Count 252 T/CUMM (130-400); Red Cell Distribution Width 12.2 % (9.3-17.3); White Blood Count 8.8 T/CUMM (4-12)
[2021-01-20 23:02] LABS: Albumin 3.2 G/DL (3.4-5.0); Bilirubin,Total 0.4 MG/DL (0.20-1.00); Calcium 8.6 MG/DL (8.5-10.1); Osmolality,Calculated 280.4 MOS/KG (273-304); Total Protein 6.3 G/DL (6.4-8.2)
[2021-01-20] MEDS ORDERED: POTASSIUM CHLORIDE 20 MEQ TABLET PO STA (23:11)
[2021-01-20 23:29] LABS: Bacteria,Urine Occasional /HPF (Few); Bilirubin,Urine Negative (Negative); Blood, Urine Negative (Negative); Glucose,Urine (UA) Negative (Negative); Ketones,Urine Negative (Negative); Mucus,Urine Occasional /LPF (Occasional); Nitrite,Urine Negative (Negative); Protein,Urine Negative; RBC,Urine 1 /HPF (0-4); Urine Appearance CLEAR (Clear); Urine Color Yellow (Yellow); Urine Specific Gravity 1.017 (1.001-1.035); Urine Urobilinogen < 2.0 EU/DL (0.2-1.0)
[2021-01-20 23:34] LABS: Barbiturates Screen,Urine Negative (Negative); Benzodiazepines Screen,Urine Negative (Negative); Cannabinoid Screen,Urine Negative (Negative); Opiate Screen,Urine Negative (Negative); Phencyclidine Screen,Urine Negative (Negative)
[2021-01-21] MEDS ORDERED: GLUCAGON 1 MG VIAL IM PRN (01:49)
[2021-01-21] MEDS ORDERED: DEXTROSE 50% 25 GM/50 ML VIAL IV PRN (01:49)
[2021-01-21] MEDS ORDERED: SODIUM CHLORIDE 0.9% 1,000 ML IV SCH (02:00)
[2021-01-21 06:36] LABS: Calcium 8.8 MG/DL (8.5-10.1); Osmolality,Calculated 279.4 MOS/KG (273-304); Potassium 3.4 MMOL/L (3.5-5.1)
[2021-01-21] MEDS: MEMANTINE 5 MG TABLET PO SCH (21:01)
[2021-01-22] MEDS ORDERED: ONDANSETRON 4 MG/2 ML VIAL IV ONE ×2 (09:14→14:00)
[2021-01-22] MEDS ORDERED: LORazepam 2 MG/1 ML VIAL IV ONE (09:17)
[2021-01-22] MEDS: MEMANTINE 5 MG TABLET PO SCH ×2 (09:42→21:47)
[2021-01-22] MEDS ORDERED: ZIPRASIDONE 20 MG/1 ML VIAL IM ONE (13:00)
[2021-01-23] MEDS: MEMANTINE 5 MG TABLET PO SCH (08:05)
[2021-01-23 08:35] VITALS: BP 176/73
== END 2021-01-23 10:00 | disposition home or self-care (01) ==
LOC: N.EDINP 21:56 → N.ED 21:56 → N.5E 01-21 04:34
PROVIDERS: ADMIT Internal Medicine Geriatric Medicine; ATTEND Internal Medicine Geriatric Medicine